=== PATIENT | male | born 1995 | race Caucasian/White ===

== ENCOUNTER 2016-11-10 21:07 | Emergency (ER) | payer OTHER ==
--- NOTE | ~2016-11-10 | CT71 ---
[facility] A Service of [facility] RADIOLOGY TEXT RESULTS PATIENT: HERNANDEZ GALDAMEZ LOCATION: [place] : [birth year] UNIT #: [id number] AGE: [address]: AARON GALEANO APRN SEX: M ORDER DR: [id number] [facility]. [place], [place] [address] [id number] MR#: [id number] Acc #: [id number] NAME: HERNANDEZ GALDAMEZ : 1995 SEX: M STUDY DATE/TIME: 11/10/2016 22:56 UNIT: [id number] ROOM: STUDY DESCRIPTION: CT Head Wo Contrast Attending Physician: Aaron Galeano Aprn Ordering Physician: Aaron Galeano Aprn Primary Care Physician: No Primary Care Physician MEDICAL IMAGING REPORT This report is preliminary unless electronic signature is present EXAM CT brain without contrast. HISTORY Headache for [address] Dizzy. TECHNIQUE This CT exam was performed with one or more of the following radiation dose reduction techniques: automatic exposure control, adjustment of mA and/or kV according to patient size, and iterative reconstruction. FINDINGS CT brain without contrast demonstrates no intracranial hemorrhage, mass or edema. No midline shift or ventricular dilatation or extraaxial fluid collection. Extensive mucosal thickening in the visualized maxillary sinuses and in the ethmoid air cells bilaterally and in the inferior frontal sinuses. IMPRESSION 1. Negative CT brain. 2. Extensive paranasal sinus mucosal thickening. Dictated by... Slade Amador M.D. THIS IS AN ELECTRONICALLY VERIFIED REPORT Slade Amador M.D. at 11/11/2016 10:45 PM AALIYAH/debbi TD: 11/10/2016 23:25 JOB #: [id number] [facility] A Service [facility] RADIOLOGY TEXT RESULTS PATIENT: HERNANDEZ GALDAMEZ LOCATION: [place] : [birth year] UNIT #: [id number] AGE: [address]: AARON GALEANO APRN SEX: M ORDER DR: MEDICAL IMAGING REPORT Page 1 of 1 COPY
[~2016-11-10 21:07] MED LIST: AUGMENTIN875 MG PO; FLEXERIL10 M1 PO; IBUPROFEN800 MG PO; NO MEDICATIONS; VOLTAREN50 MG PO
== END 2016-11-10 23:49 | disposition home or self-care (01) ==
LOC: CFTX 21:07 → CED 21:07 → CFTX 22:56
DX: S00.93XA Contusion of unspecified part of head, initial encounter (principal); Z79.899 Other long term (current) drug therapy; W22.8XXA Striking against or struck by other objects, initial encounter; Y99.0 Civilian activity done for income or pay
CPT/HCPCS: 70450; 99284